=== PATIENT | female | born 1985 | race Caucasian/White ===

== ENCOUNTER → 2022-12-15 | Outpatient (CLI) | payer BC ==
[2022-12-15 14:05] VITALS: BP 123/82; PULSE 71; TEMP 97.6; BMI 45.4
--- NOTE | 2022-12-17 09:34 | P.HPBAR ---
Bariatric H&P - History & Physicial H&P Date: 12/15/22 History & Physicial: Visit/CC: new patient Patient initial contact: Initial weight: Initial weight in pounds: Height: 5 ft 7 in Initial BMI: Last weight: Current weight: 131.723 kg Current weight in pounds: 290.40 Current BMI: 45.4 [place] body weight (based on NIH guidelines): 61.235 kg Excess body weight loss: The patient is a 37 year-old F who presents for Bariatric Assessment. Patient resents today for bariatric consultation. She is requesting gastric sleeve surgery. Her BMI is 46. She's had lifetime problems obesity. Past Medical History Past Medical History: Blood Disorder, Skin Disorder Additional Past Medical History / Comment(s): Hidradenitis suppurativa. Iron deficiency anemia History of Any Multi-Drug Resistant Organisms: MRSA Year Discovered:: 2017 MDRO Source:: Left armpit Additional Past Surgical History / Comment(s): lazy eye correction age 8. left armpit MRSA surgically removed Past Anesthesia/Blood Transfusion Reactions: No Reported Reaction Past Psychological History: No Psychological Hx Reported Smoking Status: Never smoker Past Alcohol Use History: None Reported Past Drug Use History: None Reported Surgical - Exam Vital Signs Temp Pulse BP 97.6 F 71 123/82 12/15/22 13:59 12/15/22 13:59 12/15/22 13:59 - General well developed, well nourished - Eyes PERRL - ENT normal pinna - Neck no masses - Respiratory normal expansion - Cardiovascular Rhythm: regular - Abdomen Abdomen: soft, non tender Bariatric Assessment & Plan Plan: Morbid obesity. Patient be scheduled for EGD. Patient's excellent understanding of sleeve gastrectomy changes of the risk and benefits of procedure she is aware of the risk of gastric sleeve perforation scarring or obstruction. Bariatric Checklist Checklist: Plan: Checklist: EGD: 1. Hiatal hernia: 2. H. Pylori: HgbA1c: Vitamin D: Smoking: Primary care physician referral: Dr. Parikh Psychiatry clearance: Cardiology clearance: Sleep study: Diet journal: VTE risk score: VTE risk level: Rehab needs at discharge:
== END ==
LOC: BARWHC3 13:53
PROVIDERS: ATTEND Surgery
DX: E66.01 Morbid (severe) obesity due to excess calories (principal); D75.9 Disease of blood and blood-forming organs, unspecified; L98.9 Disorder of the skin and subcutaneous tissue, unspecified; D64.9 Anemia, unspecified; L73.2 Hidradenitis suppurativa; Z68.42 Body mass index [BMI] 45.0-49.9, adult; Z88.1 Allergy status to other antibiotic agents
CPT/HCPCS: 99202

== ENCOUNTER → 2022-12-15 | Outpatient (CLI) | payer BC ==
[2022-12-15 20:11] LABS: HCT 40.2 % (37.2-46.3); HGB 12.9 d/dL (12.0-15.0); MCH 29.1 pg (27.0-32.0); MCHC 32.1 d/dL (32.0-37.0); MCV 90.7 FL (80.0-97.0); Mean Platelet Volume 10.6 FL (9.5-12.2); NRBC Per 100 WBC 0 X 10*3/uL (0.00-0.01); Platelet Count 316 X 10*3/uL (140-440); RBC 4.43 X 10*6/uL (4.10-5.20); RDW 12.4 % (11.5-14.5); WBC 12.01 X 10*3/uL (4.50-10.00)
[2022-12-15 21:17] LABS: ALT 35 U/L (8-44); AST 26 U/L (13-35); Albumin 4.6 d/dL (3.8-4.9); Alkaline Phosphatase 71 U/L (41-126); BUN/Creat Ratio 8.57 Ratio (12.00-20.00); Calcium 9.8 mg/dL (8.7-10.3); Carbon Dioxide 21.3 mmol/L (21.6-31.8); Chloride 105 mmol/L (96-109); Globulin 2.7 d/dL (1.6-3.3); Glucose 92 mg/dL (70-110); Potassium 3.9 mmol/L (3.5-5.5); Sodium 139 mmol/L (135-145); Total Bilirubin 0.7 mg/dL (0.3-1.2); Total Protein 7.3 d/dL (6.2-8.2)
== END | disposition home or self-care (01) ==
LOC: LABWHC1 14:38
PROVIDERS: ATTEND Surgery
DX: Z01.818 Encounter for other preprocedural examination (principal); E66.01 Morbid (severe) obesity due to excess calories; E88.1 Lipodystrophy, not elsewhere classified; E55.9 Vitamin D deficiency, unspecified
CPT/HCPCS: 36415; 80053; 82306; 82607; 82746; 83036; 84425; 85027; 93005